=== PATIENT | male | born 1980 | race Caucasian/White ===

== ENCOUNTER 2017-04-03 10:15 | Emergency (ER) | payer OTHER ==
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
[2017-04-03 12:58] VITALS: BP 118/86
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
== END 2017-04-03 12:15 | disposition home or self-care (01) ==
LOC: MW.ED 10:15
DX: S00.93XA Contusion of unspecified part of head, initial encounter (principal); J32.9 Chronic sinusitis, unspecified; F32.9 Major depressive disorder, single episode, unspecified; Z79.899 Other long term (current) drug therapy; V43.52XA Car driver injured in collision with other type car in traffic accident, initial encounter; Y92.410 Unspecified street and highway as the place of occurrence of the external cause
CPT/HCPCS: 70450; 70450-26; 72125; 72125-26; 99283-25; 99284

== ENCOUNTER 2017-08-21 15:38 | Emergency (ER) | payer OTHER, BC ==
[2017-08-21] MEDS ORDERED: Diphtheria,Pertussis(Acell),Tetanus Vaccine 0.5 ML Syringe IM ONE (15:52)
[2017-08-21] MEDS ORDERED: Ketorolac 60 MG/2 ML SDV IM ONE (15:52)
--- NOTE | 2017-08-21 16:03 | EDM.PDOC ---
ED HPI GENERAL MEDICAL PROBLEM - General Chief Complaint: Neck Problem Stated Complaint: INJURY AT WORK Time Seen by Provider: 08/21/17 15:47 Source of Information: Reports: Patient History Limitations: Reports: No Limitations - History of Present Illness INITIAL COMMENTS - FREE TEXT/NARRATIVE: HISTORY AND PHYSICAL: Head and neck pain History of present illness: Patient is a 37-year-old male who presents to the emergency room with complaints of neck and upper back pain and a mild headache. States at approximately 2 PM yesterday afternoon he did fall off of a rung of a ladder approximately 8 feet onto a muddy driveway. He is unsure if he lost consciousness but believes he did, at this time but was able to get up and continue on with his day. He coming today he has had increased pain to his neck and upper back. He is alert and oriented. Denies any dizziness, shortness of breath, chest pain, fever or chills. Review of systems: As per history of present illness and below otherwise all systems reviewed and negative. Past medical history: As per history of present illness and as reviewed below otherwise noncontributory. Surgical history: As per history of present illness and as reviewed below otherwise noncontributory. Social history: No reported history of drug or alcohol abuse. Family history: As per history of present illness and as reviewed below otherwise noncontributory. Physical exam: HEENT: Normocephalic, pupils reactive, negative for conjunctival pallor or scleral icterus, mucous membranes moist, throat clear, neck supple, nontender, trachea midline. The scalp was palpated and there is no open sores, abrasions or crepitus. Nontender to palpation. Lungs: Clear to auscultation, breath sounds equal bilaterally, chest nontender. Heart: S1S2, regular rate and rhythm. Abdomen: Soft, nondistended, nontender. Negative for masses or hepatosplenomegaly. Negative for costovertebral tenderness. Pelvis: Stable nontender. Genitourinary: Deferred. Rectal: Deferred. Cervical spine/back: No point vertebral tenderness upon palpation. No obvious deformities, crepitus, step-offs or tenderness with palpation. Was ambulatory into the facility without any difficulty. Extremities: Moves all extremities per self, negative for cords or calf pain. Neurovascular unremarkable. Neuro: Awake, alert, oriented. Cranial nerves II through XII unremarkable. Cerebellum unremarkable. Motor and sensory unremarkable throughout. Exam nonfocal. Cataflam 50 mg 1 tab 3 times a day as needed for pain. Did give you a prescription for 6 tablets of tramadol. You may take 1 tab at night as needed to help sleep due to pain. Do not take this medication when driving or needing to be functioning at work as it may cause drowsiness. Is follow-up with your primary caregiver in the next couple days. Return to the ED as needed and as discussed. Patient voices understanding and is agreeable to plan of care. Denies any further questions at this time. Diagnostics: CT head, C-spine, 2 view chest x-ray Therapeutics: T10, Toradol Impression: Possible concussion Head injury Neck pain post fall Plan: 1. Please take your medications as prescribed. Cataflam 50 mg 1 tab 3 times a day as needed for pain. This is an anti-inflammatory, please do not take any additional NSAID such as ibuprofen or Aleve with this medication. Did give you a prescription for 6 tablets of tramadol. You may take 1 tab at night as needed to help sleep due to pain. Do not take this medication when driving or needing to be functioning at work as it may cause drowsiness. Rest and ice the painful areas. 2. Follow-up with your primary caregiver in the next 1-2 days. Return to the ED as needed and as discussed Definitive disposition and diagnosis as appropriate pending reevaluation and review of above. Onset Date: 08/20/17 Duration: Day(s): Location: Reports: Head, Neck Improves with: Reports: None Worsens with: Reports: None Associated Symptoms: Reports: No Other Symptoms Neck Pain Score (Numeric/FACES): 9 - Related Data Allergies Allergy/AdvReac Type Severity Reaction Status Date / Time No Known Allergies Allergy Verified 08/21/17 15:38 Home Meds: Home Meds Venlafaxine [Effexor XR 24 Hr] 75 mg PO DAILY 03/20/16 [History] Past Medical History - Past Health History Medical/Surgical History: Denies Medical/Surgical History HEENT History: Reports: None Cardiovascular History: Reports: None Respiratory History: Reports: None Gastrointestinal History: Reports: None Genitourinary History: Reports: None Musculoskeletal History: Reports: None Neurological History: Reports: None Psychiatric History: Reports: Anxiety, Depression Endocrine/Metabolic History: Reports: None Hematologic History: Reports: None Immunologic History: Reports: None Oncologic (Cancer) History: Reports: None Dermatologic History: Reports: None - Infectious Disease History Infectious Disease History: Reports: Chicken Pox - Past Surgical History Head Surgeries/Procedures: Reports: None HEENT Surgical History: Reports: None Cardiovascular Surgical History: Reports: None Respiratory Surgical History: Reports: None GI Surgical History: Reports: None Male Surgical History: Reports: None Endocrine Surgical History: Reports: None Neurological Surgical History: Reports: None Musculoskeletal Surgical History: Reports: None Oncologic Surgical History: Reports: None Dermatological Surgical History: Reports: None Social & Family History - Family History Family Medical History: Noncontributory - Tobacco Use Smoking Status *Q: Never Smoker Second Hand Smoke Exposure: No - Caffeine Use Caffeine Use: Reports: Soda - Recreational Drug Use Recreational Drug Use: No ED ROS GENERAL - Review of Systems Review Of Systems: ROS reveals no pertinent complaints other than HPI. ED EXAM, UPPER BACK/NECK PAIN - Physical Exam Exam: See Below (See dictation) Course - Vital Signs Last Recorded V/S: Last Vital Signs Temp 97.2 F 08/21/17 15:39 Pulse 88 08/21/17 15:39 Resp 18 08/21/17 15:39 BP 132/82 08/21/17 15:39 Pulse Ox 97 08/21/17 15:39 - Orders/Labs/Meds Orders: Active Orders 24 hr Category Date Time Status Vaccines to be Administered [RC] PER UNIT ROUTINE Care 08/21/17 15:53 Active Cervical Spine wo Cont [CT] Stat Exams 08/21/17 15:51 Taken Chest 2V [CR] Stat Exams 08/21/17 15:51 Taken Head wo Cont [CT] Stat Exams 08/21/17 15:51 Taken Labs: Laboratory Tests 08/21/17 08/21/17 Range/Units 16:02 16:02 WBC 8.46 (4.0-11.0) K/uL RBC 5.41 (4.50-5.90) M/uL Hgb 15.2 (13.0-17.0) g/dL Hct 44.6 (38.0-50.0) % MCV 82.4 (80.0-98.0) fL MCH 28.1 (27.0-32.0) pg MCHC 34.1 (31.0-37.0) g/dL RDW Std Deviation 40.9 (28.0-62.0) fl RDW Coeff of Jose 14 (11.0-15.0) % Plt Count 329 (150-400) K/uL MPV 9.80 (7.40-12.00) fL Neut % (Auto) 78.0 (48.0-80.0) % Lymph % (Auto) 12.2 L (16.0-40.0) % [place] % (Auto) 7.4 (0.0-15.0) % Eos % (Auto) 1.9 (0.0-7.0) % Baso % (Auto) 0.5 (0.0-1.5) % Neut # (Auto) 6.6 H (1.4-5.7) K/uL Lymph # (Auto) 1.0 (0.6-2.4) K/uL [place] # (Auto) 0.6 (0.0-0.8) K/uL Eos # (Auto) 0.2 (0.0-0.7) K/uL Baso # (Auto) 0.0 (0.0-0.1) K/uL Nucleated RBC % 0.0 /100WBC Nucleated RBCs # 0 K/uL Sodium 139 (136-146) mmol/L Potassium 3.5 (3.5-5.1) mmol/L Chloride 106 (98-110) mmol/L Carbon Dioxide 22 (21-31) mmol/L BUN 12 (6.0-23.0) mg/dL Creatinine 1.0 (0.6-1.5) mg/dL Est Cr Clr Drug Dosing 99.18 mL/min Estimated GFR (MDRD) > 60.0 ml/min Glucose 99 (60-110) mg/dL Calcium 9.4 (8.8-10.8) mg/dL Total Bilirubin 0.6 (0.1-1.5) mg/dL AST 25 (5-40) IU/L ALT 21 (8-54) IU/L Alkaline Phosphatase 84 (40-150) Total Protein 6.9 (6.0-8.0) g/dL Albumin 4.3 (3.5-5.0) g/dL Globulin 2.6 (2.0-3.5) g/dL Albumin/Globulin Ratio 1.7 (1.3-2.8) Meds: Medications Discontinued Medications Generic Name Dose Route Start Last Admin Trade Name Freq PRN Reason Stop Dose Admin Diphtheria/Tetanus/Acell Pertussis 0.5 ml 08/21/17 15:52 08/21/17 16:16 Adacel IM 08/21/17 15:53 0.5 ml .ONCE ONE Administration Ketorolac Tromethamine 60 mg 08/21/17 15:52 08/21/17 16:16 Toradol IM 08/21/17 15:53 60 mg ONETIME ONE Administration Departure - Departure Time of Disposition: 17:20 Disposition: Home, Self-Care 01 Clinical Impression: Cervical pain (neck) Head injury Qualifiers: Encounter type: initial encounter Qualified Code(s): S09.90XA - Unspecified injury of head, initial encounter Concussion Qualifiers: Encounter type: initial encounter Loss of consciousness presence/duration: with LOC of unspecified duration Qualified Code(s): S06.0X9A - Concussion with loss of consciousness of unspecified duration, initial encounter - Discharge Information Forms: ED Department Discharge Additional Instructions: My general discharge The following information is given to patients seen in the emergency department who are being discharged to home. This information is to outline your options for follow-up care. We provide all patients seen in our emergency department with a follow-up referral. The need for follow-up, as well as the timing and circumstances, are variable depending upon the specifics of your emergency department visit. If you don't have a primary care physician on staff, we will provide you with a referral. We always advise you to contact your personal physician following an emergency department visit to inform them of the circumstance of the visit and for follow-up with them and/or the need for any referrals to a consulting specialist. The emergency department will also refer you to a specialist when appropriate. This referral assures that you have the opportunity for follow-up care with a specialist. All of these measure are taken in an effort to provide you with optimal care, which includes your follow-up. Under all circumstances we always encourage you to contact your private physician who remains a resource for coordinating your care. When calling for follow-up care, please make the office aware that this follow-up is from your recent emergency room visit. If for any reason you are refused follow-up, please contact the [facility] Emergency Department at and asked to speak to the emergency department charge nurse. [facility] [address] [place] [id number] 1. Please take your medications as prescribed. Cataflam 50 mg 1 tab 3 times a day as needed for pain. This is an anti-inflammatory, please do not take any additional NSAID such as ibuprofen or Aleve with this medication. Did give you a prescription for 6 tablets of tramadol. You may take 1 tab at night as needed to help sleep due to pain. Do not take this medication when driving or needing to be functioning at work as it may cause drowsiness. Rest and ice the painful areas. 2. Follow-up with your primary caregiver in the next 1-2 days. Return to the ED as needed and as discussed - My Orders Last 24 Hours: My Active Orders 08/21/17 15:51 Cervical Spine wo Cont [CT] Stat Chest 2V [CR] Stat Head wo Cont [CT] Stat 08/21/17 15:53 Vaccines to be Administered [RC] PER UNIT ROUTINE - Assessment/Plan Last 24 Hours: My Active Orders 08/21/17 15:51 Cervical Spine wo Cont [CT] Stat Chest 2V [CR] Stat Head wo Cont [CT] Stat 08/21/17 15:53 Vaccines to be Administered [RC] PER UNIT ROUTINE
[2017-08-21 16:41] LABS: CHLORIDE,CL 106 mmol/L (98-110); SODIUM,NA 139 mmol/L (136-146)
[2017-08-21 17:22] VITALS: BP 132/84
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
== END 2017-08-21 17:34 | disposition home or self-care (01) ==
LOC: MW.ED 15:38
DX: S06.0X9A Concussion with loss of consciousness of unspecified duration, initial encounter (principal); M54.2 Cervicalgia; F32.9 Major depressive disorder, single episode, unspecified; Z79.899 Other long term (current) drug therapy; W11.XXXA Fall on and from ladder, initial encounter; Z23 Encounter for immunization
CPT/HCPCS: 36415; 70450; 71020; 72125; 80053; 85025; 90471; 90715; 96372; 99284; J1885

== ENCOUNTER 2019-09-12 02:45 | Emergency (ER) | payer BC, OTHER ==
[2019-09-12] MEDS ORDERED: Amoxicillin/Clavulanate K 875-125 MG Tab PO ONE (03:24)
--- NOTE | 2019-09-12 03:25 | EDM.PDOC ---
ED HPI GENERAL MEDICAL PROBLEM - General Chief Complaint: ENT Problem Stated Complaint: SINUS INFECTION Time Seen by Provider: 09/12/19 03:25 - History of Present Illness INITIAL COMMENTS - FREE TEXT/NARRATIVE: HPI 39-year-old male with poor dentition presents for evaluation of 2-3 days of right maxillary sinus pressure, malodorous drainage from blowing his nose, and equivocal right maxillary molar discomfort. No headache, changes in vision or hearing, neck stiffness, difficulty swallowing. Non-smoker, no diabetes, no identifiable immunocompromise. M/S/F/SocHx notable for: please see HPI; remainder reviewed with patient and in chart. ROS: Negative constitutional, eye, cardiovascular, pulmonary, GI, , MSK, skin , neurologic, psychiatric, endocrine unless noted in the HPI. Exam HR 89, RR 18, BP 145/95, T 37.3C, SaO2 94% on room air. Gen: Pleasant, non-toxic appearing, resting comfortably HEENT: NC, AT, PEERL, EOMI. No swelling, no maxillary or frontal science tenderness to palpation, TMs clear bilaterally. Mouth: right maxillary 2nd molar with grossly visible caries, majority of tooth is absent, floor of the mouth soft without swelling or tongue elevation, no peritonsilar swelling bilaterally, uvula midline, moist mucus membranes without lesions, tongue without plaques or lesions,gumline without significant ulcerations, no bleeding, no marked halitosis. Neck: Supple with a full range of motion, no swelling, no cervical lymphdenopathy, no difficulty swallowing. Resp: Clear to auscultation bilaterally, normal work of breathing, no accessory muscle usage. Card: Regular rate and rhythm with no murmurs, rubs, or gallops, extremities warm and well perfused. GI: non-distended MSK: No visible deformities, strength and tone without visually appreciable deficit. Skin: Normal color with no visible lesions. Neuro: alert and oriented 3, no facial asymmetry, vision and hearing WNL. Psych: Mood and affect appropriate. MDM Previous chart, nursing note, and vitals reviewed. A: 39-year-old male with poor dentition presents for evaluation of 2-3 days of right maxillary sinus pressure, malodorous drainage from blowing his nose, and equivocal right maxillary molar discomfort. DDX: caries, pulpitis, gingivitis, periodontitis, periapical abscess, jaw osteomyelitis, Ludgwig's angina, acute necrotizing gingivitis. ED Course: Reassuringly, the patients exam is without findings consistent with Ludwigs angina, nor were there evidence of clinically significant abscesses. The gumline was without gross abnormalities. Suspect the patients dental pain is secondary to the poor dentition, caries, and a likely periapical abscess. As the patient is not presently intending to seek dental care in the mid to near future opiate analgesics are not appropriate, the patient was instructed to use OTC pain medications, was prescribed 10 days of Augmentin BID and was provided with a list of low cost area dental services. Impression: dental and sinus pain Treatments STERILE PROC TECH: Reports: Acetaminophen, Cold Therapy tooth Pain Score (Numeric/FACES): 6 - Related Data Allergies Allergy/AdvReac Type Severity Reaction Status Date / Time No Known Allergies Allergy Verified 09/12/19 03:08 Home Meds: Home Meds Venlafaxine [Effexor XR 24 Hr] 75 mg PO DAILY 03/20/16 [History] Amoxicillin/Clavulanate K [Augmentin 875-125 MG] 1 tab PO BID #19 tab 09/12/19 [ Rx] Past Medical History - Past Health History Medical/Surgical History: Denies Medical/Surgical History HEENT History: Reports: None Cardiovascular History: Reports: None Respiratory History: Reports: None Gastrointestinal History: Reports: None Genitourinary History: Reports: None Musculoskeletal History: Reports: None Neurological History: Reports: None Psychiatric History: Reports: Anxiety, Depression Endocrine/Metabolic History: Reports: Obesity/BMI 30+ Hematologic History: Reports: None Immunologic History: Reports: None Oncologic (Cancer) History: Reports: None Dermatologic History: Reports: None - Infectious Disease History Infectious Disease History: Reports: Chicken Pox - Past Surgical History Head Surgeries/Procedures: Reports: None HEENT Surgical History: Reports: None Cardiovascular Surgical History: Reports: None Respiratory Surgical History: Reports: None GI Surgical History: Reports: None Male Surgical History: Reports: None Endocrine Surgical History: Reports: None Neurological Surgical History: Reports: None Musculoskeletal Surgical History: Reports: None Oncologic Surgical History: Reports: None Dermatological Surgical History: Reports: None Social & Family History - Family History Family Medical History: Noncontributory - Tobacco Use Smoking Status *Q: Never Smoker - Caffeine Use Caffeine Use: Reports: Soda - Recreational Drug Use Recreational Drug Use: No ED ROS GENERAL - Review of Systems Review Of Systems: See Below ED EXAM, GENERAL - Physical Exam Exam: See Below Course - Vital Signs Last Recorded V/S: Last Vital Signs Temp 37.3 C 09/12/19 03:02 Pulse 89 09/12/19 03:02 Resp 18 09/12/19 03:02 BP 145/95 H 09/12/19 03:02 Pulse Ox 94 L 09/12/19 03:02 Departure - Departure Time of Disposition: 03:23 Disposition: Home, Self-Care 01 Clinical Impression: Pain, dental - Discharge Information Prescriptions: Amoxicillin/Clavulanate K [Augmentin 875-125 MG] 1 tab PO BID #19 tab Referrals: Michael Larios MD [Primary Care Provider] - Additional Instructions: You were in seen in the [facility] Emergency Department for evaluation of dental and sinus pain Please read and follow all of the instructions below. Please use ibuprofen and acetaminophen for treatment of pain. Do not use more than instructed to use - this will not reduce your pain and it will increase the risk of ulcers, liver failure, kidney injury, and other serious side effects. Unfortunately, stronger pain medications such as narcotics could not be prescribed today as it is not appropriate to use these medications to indefinitely mask untreated serious medical conditions - THE MOST APPROPRIATE TREATMENT FOR YOUR CONDITION IS PROMPT DENTAL CARE. YOUR DENTAL PAIN WILL NOT GET BETTER UNTIL YOU ARE TREATED BY A DENTIST. If left untreated your infection can worsen and may become life threatening. Please return to the emergency department if you develop any of the following: fevers, chills, neck stiffness, difficulty swallowing, difficulty breathing, headaches, changes in vision or hearing, or if you are otherwise concerned about your health. PLEASE FOLLOW UP WITHIN 24 HOURS WITH A DENTIST. If you have any new symptoms or if you are at all concerned about your health please return immediately to the emergency department. When calling for follow-up care, please make the office aware that this follow- up is from your recent emergency room visit. If for any reason you are refused follow-up, please contact the [facility] Emergency Department at and asked to speak to the emergency department charge nurse. Your care today was limited to identifying and treating emergent medical problems only. Many people have subtle differences in their test results that require follow up with their outpatient physician(s) to correctly determine if this represents a normal variation or concerning abnormality with respect to your specific health. The care given to you today was limited to identifying and treating emergent medical problems - you need to request a copy of all of your medical records from today's visit and follow up with your outpatient physician(s) to review both today's visit and your overall health. If you have any new symptoms or if you are at all concerned about your health please return immediately to the emergency department. Prescriptions: If you are uninsured or have financial difficulties with filling your prescription(s), you may consider using a free pharmacy discount service such as [employer] ([employer]) or [employer] ([employer] ([employer]). These services allow you to search for a medication on your phone (or computer) and obtain a coupon that usually has a significant discount from the list cho at a pharmacy. Your physician as well as [facility] does not have a financial relationship with either of these services. You may also wish to speak with your physician to determine if lower cost prescriptions are possible. Obtaining primary care: 1. [facility] provides pediatrics (children), family medicine (children, adults, and some obstetrical care), and internal medicine (adults). Further specialty care is also available. Same day appointments are available. They may be contacted at [phone] and are open Friday through Friday 8 AM to 5 PM. The [facility] are located at [facility], [address] [place] [address] 90. 2. [facility] offers family medicine, internal medicine, womens health, and further specialty care. [facility] may be contacted at [phone]. [facility] is located at [facility]. [place] [id number]. 3. If you have health insurance, please also contact your insurer for a list of accepting providers under your policy, you may contact these providers for further health care. Occupational health: Work related injuries may consider following up with [facility], . Occupational health services are located at [address] [place] [address] and are open Friday through Friday from 7: 30 am to 5:00 pm. Obstetrical and Gynecological Care: [facility], , Friday through Friday 8 AM to 5 PM. [address], [place] [address]. Eyecare: If you have an eye injury you should follow up with your rn field or with [facility], at [phone] or [phone] , they are located at [address] [place] [address]. Dental Care Aurelio Araya DDS. [address] [place], [place]. Ph. [phone] Real Araya DDS MS. [address] [facility] 104, [place], [place]. Ph. [phone] Sunil Juarez DDS. 10 09/[address] [place] [address]. Ph. [phone] Chidi Real DDS. 501 [facility] 4 [place], [place]. Ph. [phone] Emerson Duron DDS PC. [address] [facility] [address] [facility] 101 [place], [place]. Ph. [phone] Migue Denny DDS. [address] [place] [address]. Ph. [phone] [facility] Dental [facility]. [address] [place], [place]. Ph. [phone] [facility]. [address], [place], [place]. Ph. [phone] [facility] [address] [place] [address]. Ph. [phone] [facility]. [address] [place] [address] 1. [place], [place]. Ph. [phone] [facility]. [address] [place] [address]. Ph. [phone] Amoxicillin/Clavulanic Acid (Brand Name: Augmentin) Please take this medication as prescribed. Please take the medication for the full duration of the precription. If you feel you are experiencing a side effect, please call your physician or the emergency department. This is a penicillin type medicine used to treat a wide variety of bacterial infections. Amoxicillin/Clavulanic Acid Side Effects: Diarrhea, nausea, or vomiting may occur. If any of these effects persist or worsen, tell the doctor or pharmacist promptly. Taking this medication with food will help to reduce stomach upset. Tell the doctor right away if any of these rare but serious side effects occur: dark urine, persistent nausea/vomiting, severe stomach/abdominal pain, yellowing eyes/skin, easy bruising/bleeding, new signs of infection (such as fever, persistent sore throat), unusual tiredness. This medication may rarely cause a severe intestinal condition (Clostridium difficile-associated diarrhea) due to a type of resistant bacteria. This condition may occur during treatment or weeks to months after treatment has stopped. Do not use anti-diarrhea products or narcotic pain medications if you have any of the following symptoms because these products may make them worse. Tell the doctor right away if you develop: persistent diarrhea, abdominal or stomach pain/cramping, blood/mucus in your stool. Use of this medication for prolonged or repeated periods may result in oral thrush or a new yeast infection. Contact the doctor if you notice white patches in your mouth, a change in vaginal discharge or other new symptoms. A very serious allergic reaction to this drug is rare. However, get medical help right away if you notice any symptoms of a serious allergic reaction, including: rash, itching/swelling (especially of the face/tongue/throat), severe dizziness, trouble breathing. Amoxicillin can commonly cause a mild rash that is usually not serious. However, you may not be able to tell it apart from a rare rash that could be a sign of a severe allergic reaction. Therefore, get medical help right away if you develop any rash. Amoxicillin/Clavulanic Acid Precautions: Before taking this product, tell your doctor or pharmacist if you are allergic to amoxicillin or clavulanic acid; or to penicillin or cephalosporin antibiotics; or if you have any other allergies. This product may contain inactive ingredients, which can cause allergic reactions or other problems. Talk to your pharmacist for more details. Before using this medication, tell the doctor or pharmacist your medical history, especially of: liver disease (including liver problems caused by previous use of amoxicillin/clavulanic acid), kidney disease, a certain type of viral infection (infectious mononucleosis). This medication may contain aspartame. If you have phenylketonuria (PKU) or any other condition that requires you to limit/avoid aspartame (or phenylalanine ) in your diet, ask your doctor or pharmacist about using this medication safely. Before having surgery, tell your doctor or dentist about all the products you use (including prescription drugs, nonprescription drugs, and herbal products). This product may cause live bacterial vaccines (such as typhoid vaccine) not to work as well. Therefore, do not have any immunizations/vaccinations while using this medication without the consent of your doctor. During , this medication should be used only when clearly needed. Discuss the risks and benefits with your doctor. This medication passes into breast milk. Consult your doctor before breast- feeding. Amoxicillin/Clavulanic Acid Drug Interactions: Drug interactions may change how your medications work or increase your risk for serious side effects. This document does not contain all possible drug interactions. Keep a list of all the products you use (including prescription/ nonprescription drugs and herbal products) and share it with your doctor and pharmacist. Do not start, stop, or change the dosage of any medicines without your doctor's approval. Products that may interact with this drug include: methotrexate. Although most antibiotics are unlikely to affect hormonal control such as pills, patch, or ring, a few antibiotics (such as rifampin, rifabutin) can decrease their effectiveness. This could result in . If you use hormonal control, ask your doctor or pharmacist for more details. This medication may interfere with certain laboratory tests (including certain urine glucose tests), possibly causing false test results. Make sure laboratory personnel and all your doctors know you use this drug. You make take over the counter Acetaminophen (Tylenol) and Ibuprofen (Motrin or Aleve) as directed below for relief of pain. Take 600 mg of ibuprofen (three 200 mg tablets) with a glass of water every 6-8 hours as needed for pain or fever. Do not take if you have ulcers, GI bleeding, are , or are allergic to ibuprofen. Take 1,000 mg of acetaminophen (two 500 mg tablets) with a glass of water every 6-8 hours as needed for pain. Do not take if you are allergic to acetaminophen. If you have liver disease, please reduce your dose to a maximum of 2,000 mg per day. You can take these medications at the same time or on separate schedules. Do not take for more than 10 days. Do not take with alcohol or other acetaminophen containing medications. This medication may cause a mildly upset stomach, if so take it with a small snack. Stop taking it if you have persistent abdominal pain, heartburn, or any stomach pain. Do not take this medication if you have known ulcers. Please read the warnings at the end of this document regarding these medications. IBUPROFEN WARNING: This drug may infrequently cause serious (rarely fatal) bleeding from the stomach or intestines. Also, related drugs rarely have caused blood clots to form, resulting in heart attacks and strokes. This medication might also rarely cause similar problems. Talk to your doctor or pharmacist about the benefits and risks of treatment, as well as other possible medication choices. If you notice any of the following rare but very serious side effects, stop taking ibuprofen and seek immediate medical attention: black stools, persistent stomach/abdominal pain, vomit that looks like coffee grounds, chest pain, weakness on one side of the body, sudden vision changes, slurred speech. IBUPROFEN SIDE EFFECTS: Upset stomach, nausea, vomiting, heartburn, headache, diarrhea, constipation, drowsiness, and dizziness may occur. If any of these effects persist or worsen, notify your doctor or pharmacist promptly. If your doctor has directed you to use this medication, remember that he or she has judged that the benefit to you is greater than the risk of side effects. Many people using this medication do not have serious side effects. Tell your doctor immediately if any of these serious side effects occur: stomach pain, swelling of the hands or feet, sudden or unexplained weight gain, ringing in the ears ( tinnitus). Tell your doctor immediately if any of these unlikely but serious side effects occur: vision changes, rapid or pounding heartbeat, easy bruising or bleeding, difficult/painful swallowing. Tell your doctor immediately if any of these highly unlikely but very serious side effects occur: change in amount of urine, severe headache, very stiff neck, mental/mood changes, persistent sore throat or fever. This drug may rarely cause serious (possibly fatal) liver disease. If you notice any of the following highly unlikely but very serious side effects, stop taking ibuprofen and consult your doctor or pharmacist immediately: yellowing eyes and skin, dark urine, unusual/extreme tiredness. An allergic reaction to this drug is unlikely, but seek immediate medical attention if it occurs. Symptoms of an allergic reaction include: rash, itching/ swelling (especially of the face/tongue/throat), severe dizziness, trouble breathing. This is not a complete list of possible side effects. ACETAMINOPHEN SIDE EFFECTS: This drug usually has no side effects. If you do not have liver problems, the maximum dose of acetaminophen for adults is 4 grams per day (4000 milligrams). Taking more than the maximum daily amount may cause serious (possibly fatal) liver damage. Get medical help right away if you have any of the following symptoms of liver damage: persistent nausea/vomiting, extreme tiredness, stomach/abdominal pain, yellowing eyes/skin, dark urine. If you have liver problems, consult your doctor or pharmacist for a safe dosage of this medication. A very serious allergic reaction to this drug is rare. However , get medical help right away if you notice any symptoms of a serious allergic reaction, including: rash, itching/swelling (especially of the face/tongue/ throat), severe dizziness, trouble breathing. This is not a complete list of possible side effects. If you notice other effects not listed above, contact your doctor or pharmacist. DRUG INTERACTIONS: Your healthcare professionals (e.g., doctor or pharmacist) may already be aware of any possible drug interactions and may be monitoring you for it. Do not start, stop or change the dosage of any medicine before checking with them first. This drug should not be used with the following medications because very serious interactions may occur: cidofovir, ketorolac. If you are currently using any of these medications listed above, tell your doctor or pharmacist before starting ibuprofen. Before using this medication, tell your doctor or pharmacist of all prescription and nonprescription/herbal products you may use, especially of: anti-platelet drugs (e.g., cilostazol, clopidogrel), oral bisphosphonates (e.g., alendronate), other medications for arthritis (e.g., aspirin, methotrexate), "blood thinners" (e.g., enoxaparin, heparin, warfarin), corticosteroids (e.g., prednisone), cyclosporine, desmopressin, high blood pressure drugs (including TOMAS inhibitors such as captopril, angiotensin II receptor antagonists such as losartan, and beta- blockers such as metoprolol), lithium, pemetrexed, "water pills" (diuretics such as furosemide, hydrochlorothiazide, triamterene). Check all prescription and nonprescription medicine labels carefully for other pain/fever drugs ( NSAIDs such as aspirin, celecoxib, naproxen). These drugs are similar to ibuprofen, so taking one of these drugs while also taking ibuprofen may increase your risk of side effects. Consult your doctor or pharmacist for more details. However, if your doctor has prescribed low doses of aspirin to prevent heart attack or stroke (usually at dosages of 81-325 milligrams a day), you should continue to take the aspirin. Daily use of ibuprofen may decrease aspirin 's ability to prevent heart attack/stroke. Talk to your doctor about using a different medication (e.g., acetaminophen) to treat pain/fever. If you must take ibuprofen, talk to your doctor about possibly taking immediate-release aspirin (not enteric-coated) while also taking the ibuprofen dose apart from your aspirin dose. Do not increase your daily dose of aspirin or change the way you take aspirin/other medications without your doctor's approval. This document does not contain all possible interactions. Therefore, before using this product, tell your doctor or pharmacist of all the products you use. Keep a list of all your medications with you, and share the list with your doctor and pharmacist. Sepsis Event Note - Evaluation Sepsis Screening Result: No Definite Risk - Focused Exam Vital Signs: Vital Signs Temp Pulse Resp BP Pulse Ox 09/12/19 03:02 37.3 C 89 18 145/95 H 94 L Date Exam was Performed: 09/12/19 Time Exam was Performed: 03:23
[2019-09-12 03:42] VITALS: BP 135/86; PULSE 83
== END 2019-09-12 03:35 | disposition home or self-care (01) ==
LOC: MW.ED 02:45
DX: K02.9 Dental caries, unspecified (principal); J34.89 Other specified disorders of nose and nasal sinuses; E66.9 Obesity, unspecified; F41.9 Anxiety disorder, unspecified; F32.9 Major depressive disorder, single episode, unspecified; Z79.899 Other long term (current) drug therapy
CPT/HCPCS: 99283; A9270; 99282

== ENCOUNTER 2022-01-09 07:04 | Day surgery (SDC) | payer BC ==
[~2022-01-09 07:04] MED LIST: Acetaminophen 1,000 MG in Premix Bag 1 BAG IV SCH; Albuterol 0.083% 2.5 MG/3 ML Neb Soln NEB PRN; HYDROmorphone 1 MG/ML Syringe IVPUSH PRN; Lactated Ringers 1,000 ML IV SCH; Metoclopramide 10 MG/2 ML SDV IVPUSH PRN; Morphine 4 MG/ML VIAL IVPUSH PRN; Naloxone 0.4 MG/ML SDV IVPUSH PRN; Ondansetron 4 MG/2 ML SDV IVPUSH PRN; Scopolamine 1.5 MG Transdermal Patch TRDERM ONE; cefOXitin 2 GM in Premix Bag 1 BAG IV SCH; fentaNYL 100 MCG/2 ML SDV IVPUSH PRN; propofoL 100 ML ONE
[2022-01-09] MEDS ORDERED: Ondansetron 4 MG/2 ML SDV ONE (07:05)
[2022-01-09] MEDS ORDERED: fentaNYL 100 MCG/2 ML SDV ONE ×2 (07:05→08:27)
[2022-01-09] MEDS ORDERED: Glycopyrrolate 0.2 MG/ML SDV ONE (07:06)
[2022-01-09] MEDS ORDERED: Rocuronium Bromide 50 MG/5 ML Syringe ONE (07:06)
[2022-01-09] MEDS ORDERED: Midazolam 1 MG/ML 2 ML SDV ONE (07:06)
[2022-01-09] MEDS ORDERED: Ketorolac 30 MG/ML SDV ONE (07:06)
[2022-01-09] MEDS ORDERED: Dexamethasone 4 MG/ML 5 ML MDV ONE (07:06)
[2022-01-09] MEDS ORDERED: Sugammadex Sodium 200 MG/2 ML VIAL ONE (07:06)
[2022-01-09] MEDS ORDERED: Octyl 2-Cyanoacrylate 1 Tube ONE (07:19)
[2022-01-09] MEDS ORDERED: Bupivacaine 0.25% 30 ML SDV ONE (07:19)
[2022-01-09] MEDS ORDERED: Morphine 4 MG/ML VIAL ONE ×2 (07:21)
[2022-01-09] MEDS ORDERED: Water For Injection, Sterile 20 ML ONE (07:35)
[2022-01-09] MEDS ORDERED: cefOXitin 1 GM Vial ONE (07:35)
[2022-01-09] MEDS ORDERED: fentaNYL 250 MCG/5 ML SDV ONE (08:27)
[2022-01-09 10:51] VITALS: PULSE 53
[2022-01-09 11:10] VITALS: BP 132/79
== END 2022-01-09 11:47 | disposition home or self-care (01) ==
LOC: MW.SDS 07:04
PROVIDERS: ATTEND Surgery
DX: K81.1 Chronic cholecystitis (principal); F41.9 Anxiety disorder, unspecified; F32.A Depression, unspecified; E66.9 Obesity, unspecified; Z68.34 Body mass index [BMI] 34.0-34.9, adult; Z79.899 Other long term (current) drug therapy
CPT/HCPCS: 47562; A9270; J0131; J0694; J1100; J1885; J2250; J2270; J2405; J2704; J3010; J3490; J7030; J7120; 00790